=== PATIENT | female | born 1985 | race Caucasian/White ===

== ENCOUNTER 2021-07-19 12:47 | Inpatient (IN) | payer MEDICAID ==
[~2021-07-19] VITALS: Ht 162.6 cm; Wt 76.7 kg
[2021-07-19] MEDS ORDERED: ZOLPIDEM TARTRATE 10 MG TABLET PO PRN (17:00)
[2021-07-19] MEDS ORDERED: PNEUMOCOCCAL VACCINE POLYVALENT 0.5 ML VIAL [PPSV23] IM. ONE (18:00)
[2021-07-19] MEDS ORDERED: DiphenhydrAMINE HCL 25 MG CAPSULE PO ONE (19:00)
[2021-07-19 19:27] VITALS: BP 101/72
[2021-07-20 00:37] VITALS: BP 116/70
[2021-07-20] MEDS ORDERED: PETROLATUM,WHITE 28 GM JELLY TP PRN (06:15)
[2021-07-20] MEDS ORDERED: NICOTINE 14 MG/24 HOUR PATCH TD PRN (06:15)
[2021-07-20] MEDS ORDERED: ONDANSETRON HCL 4 MG TABLET PO PRN (06:15)
[2021-07-20] MEDS ORDERED: DOCUSATE SODIUM 100 MG CAPSULE PO PRN (06:15)
[2021-07-20] MEDS ORDERED: MAGNESIUM HYDROXIDE SUSPENSION 30 ML UDCUP PO PRN (06:15)
[2021-07-20] MEDS ORDERED: MAG HYDROX/AL HYDROX/SIMETH ES 30 ML SUSPENSION UDCUP PO PRN (06:15)
[2021-07-20] MEDS ORDERED: IBUPROFEN 400 MG TABLET PO PRN (06:15)
[2021-07-20] MEDS ORDERED: GuaiFENesin/D-METHORPHAN [SUGAR-FREE] 200-20MG/10 ML SYRUP UDCUP PO PRN (06:15)
[2021-07-20] MEDS ORDERED: LOPERAMIDE HCL 2 MG CAPSULE PO PRN (06:15)
[2021-07-20] MEDS ORDERED: ALBUTEROL SULFATE HFA 90 MCG/PUFF 8 GM INHALER IH PRN (06:15)
[2021-07-20] MEDS ORDERED: ACETAMINOPHEN 325 MG TABLET PO PRN (06:15)
[2021-07-20] MEDS ORDERED: CloNIDine HCL 0.1 MG TABLET PO PRN (06:15)
[2021-07-20 07:30] LABS: ALANINE AMINOTRANSFERASE 16 U/L (12-78); ALBUMIN 3.2 g/dL (3.4-5.0); ALKALINE PHOSPHATASE 64 U/L (46-116); ANION GAP 7 mmol/L (8-16); ASPARTATE AMINOTRANSFERASE 11 U/L (15-37); BILIRUBIN,TOTAL 0.6 mg/dL (0.1-1.0); CALCIUM, TOTAL 8.8 mg/dL (8.8-10.5); CARBON DIOXIDE 28 mmol/L (22-29); CHLORIDE 106 mmol/L (98-107); CHOL/HDL RATIO 2.7 (3.9-5.7); CHOLESTEROL 119 mg/dL (131-200); CREATININE 0.91 mg/dL (0.60-1.30); FREE T4 (FREE THYROXINE) 1.13 ng/dL (0.76-1.46); GLOMERULAR FILTR. RATE CALC > 60 mL/min (>60); GLUCOSE,RANDOM 82 mg/dL (70-110); HCG,QUANTITATIVE < 1 mIU/mL (0-6); HDL CHOLESTEROL 44 mg/dL (40-60); LDL CHOL (CALC.) 66 mg/dL (0-130); POTASSIUM 3.9 mmol/L (3.5-5.1); SODIUM SERUM 141 mmol/L (136-145); THYROID STIMULATING HORMONE 0.77 uIU/mL (0.36-3.74); TOTAL PROTEIN, SERUM 6.6 g/dL (6.4-8.2); TRIGLYCERIDES 45 mg/dL (15-150); UREA NITROGEN, BLOOD 19 mg/dL (7-18)
[2021-07-20 07:31] LABS: HEMOGLOBIN A1C 4.8 % (3.8-5.6)
[2021-07-20 08:15] VITALS: BP 118/76
[2021-07-20] MEDS: CEPHALEXIN MONOHYDRATE 500 MG CAPSULE PO SCH ×3 (08:41→16:16)
[2021-07-20] MEDS: LORazepam 2 MG TABLET PO PRN (08:42)
[2021-07-20] MEDS ORDERED: NYSTATIN 15 GM POWDER BOTTLE TP SCH (09:00)
[2021-07-20] MEDS: NYSTATIN 30 GM CREAM TP SCH (16:17)
[2021-07-21 07:02] VITALS: BP 103/56
[2021-07-21] MEDS: CEPHALEXIN MONOHYDRATE 500 MG CAPSULE PO SCH ×3 (08:11→17:12)
[2021-07-21] MEDS: NYSTATIN 30 GM CREAM TP SCH ×2 (08:11→17:12)
[2021-07-21 08:15] VITALS: BP 119/68
[2021-07-21 16:45] VITALS: BP 102/66
[2021-07-21] MEDS: HALOPERIDOL 5 MG TABLET PO PRN (17:12)
[2021-07-21] MEDS: LORazepam 2 MG TABLET PO PRN (17:12)
[2021-07-22 07:01] VITALS: BP 110/71
[2021-07-22 08:07] VITALS: BP 115/66
[2021-07-22] MEDS: CEPHALEXIN MONOHYDRATE 500 MG CAPSULE PO SCH ×3 (08:19→16:01)
[2021-07-22] MEDS: NYSTATIN 30 GM CREAM TP SCH ×2 (08:19→16:01)
[2021-07-22] MEDS: LORazepam 2 MG TABLET PO PRN ×2 (08:22→19:37)
[2021-07-22] MEDS: LURASIDONE HCL 60 MG TABLET PO SCH (16:01)
[2021-07-22 16:09] VITALS: BP 109/69
[2021-07-22] MEDS: HALOPERIDOL 5 MG TABLET PO PRN (19:37)
[2021-07-22] MEDS: TraZODone HCL 50 MG TABLET PO SCH (20:06)
[2021-07-23] MEDS: LORazepam 2 MG TABLET PO PRN (08:06)
[2021-07-23] MEDS: CEPHALEXIN MONOHYDRATE 500 MG CAPSULE PO SCH ×3 (08:06→16:03)
[2021-07-23] MEDS: NYSTATIN 30 GM CREAM TP SCH ×2 (08:07→16:05)
[2021-07-23 08:14] VITALS: BP 100/60
[2021-07-23] MEDS: HALOPERIDOL 5 MG TABLET PO PRN (08:58)
[2021-07-23 16:03] VITALS: BP 108/6
[2021-07-23] MEDS: LURASIDONE HCL 60 MG TABLET PO SCH (16:03)
[2021-07-23] MEDS: TraZODone HCL 50 MG TABLET PO SCH (20:45)
[2021-07-24 05:50] VITALS: BP 111/69
[2021-07-24 08:04] VITALS: BP 115/62
[2021-07-24] MEDS: LORazepam 2 MG TABLET PO PRN ×2 (08:34→18:51)
[2021-07-24] MEDS: CEPHALEXIN MONOHYDRATE 500 MG CAPSULE PO SCH ×2 (08:34→12:07)
[2021-07-24] MEDS: HALOPERIDOL 5 MG TABLET PO PRN ×2 (08:34→18:48)
[2021-07-24] MEDS: NYSTATIN 30 GM CREAM TP SCH ×2 (08:50→16:06)
[2021-07-24 16:03] VITALS: BP 98/61
[2021-07-24] MEDS: LURASIDONE HCL 60 MG TABLET PO SCH (16:50)
[2021-07-24] MEDS: TraZODone HCL 50 MG TABLET PO SCH (20:36)
[2021-07-25 07:04] VITALS: BP 90/56
[2021-07-25 08:06] VITALS: BP 102/59
[2021-07-25] MEDS: NYSTATIN 30 GM CREAM TP SCH ×2 (08:19→16:29)
[2021-07-25] MEDS: SERTRALINE HCL 50 MG TABLET PO SCH (09:40)
[2021-07-25] MEDS: LURASIDONE HCL 60 MG TABLET PO SCH (16:29)
[2021-07-25 16:30] VITALS: BP 89/55
[2021-07-25] MEDS: TraZODone HCL 50 MG TABLET PO SCH (21:00)
[2021-07-26] MEDS: NYSTATIN 30 GM CREAM TP SCH (09:00)
[2021-07-26] MEDS: SERTRALINE HCL 50 MG TABLET PO SCH (09:00)
== END 2021-07-26 16:16 | disposition short-term general hospital (02) | DRG 750 ==
LOC: B3A 16:41
PROVIDERS: ADMIT Psychiatry & Neurology Child & Adolescent Psychiatry; ATTEND Psychiatry & Neurology Child & Adolescent Psychiatry
DX: F25.1 Schizoaffective disorder, depressive type (principal); I95.9 Hypotension, unspecified; E88.09 Other disorders of plasma-protein metabolism, not elsewhere classified; B36.9 Superficial mycosis, unspecified; F41.9 Anxiety disorder, unspecified; F19.10 Other psychoactive substance abuse, uncomplicated; R53.83 Other fatigue; Z20.822 Contact with and (suspected) exposure to COVID-19; Z88.5 Allergy status to narcotic agent; Z88.8 Allergy status to other drugs, medicaments and biological substances; Z28.21 Immunization not carried out because of patient refusal
CPT/HCPCS: 80053; 80061; 83036; 84439; 84443; 84702; Q9967

== ENCOUNTER 2021-07-25 20:18 | Inpatient (IN) | payer MEDICAID, OTHER ==
[~2021-07-25] VITALS: Ht 193 cm; Wt 77.7 kg
[2021-07-25] MEDS ORDERED: SODIUM CHLORIDE 0.9% 1,000 ML IV ONE (21:00)
[2021-07-25 21:08] LABS: BASOPHILS % (AUTO) 0.5 % (0.0-2.0); EOSINOPHILS % (AUTO) 1.6 % (1.0-6.0); HEMATOCRIT 33.9 % (36-46); HEMOGLOBIN 11.8 g/dL (12.0-16.0); LYMPHOCYTES % (AUTO) 30.8 % (22.0-44.0); MEAN CORPUSCULAR HEMOGLOBIN 31.7 pg (26.0-34.0); MEAN CORPUSCULAR HGB CONC 34.7 G/dL (31.0-37.0); MEAN CORPUSCULAR VOLUME 91 fL (80-100); MONOCYTES # (AUTO) 0.3 K/uL (0.1-1.0); MONOCYTES % (AUTO) 8.5 % (2.0-9.0); NEUTROPHILS # (AUTO) 1.9 K/uL (1.8-7.7); NEUTROPHILS % (AUTO) 58.6 % (40.0-70.0); PLATELET COUNT (AUTO) 97 K/uL (150-450); RED BLOOD CELL COUNT(AUTO) 3.71 MIL/uL (4.00-5.20); RED CELL DISTRIBUTION WIDTH 11.9 % (11.5-14.5)
[2021-07-25 21:25] LABS: ANION GAP 6 mmol/L (8-16); CALCIUM, TOTAL 8.3 mg/dL (8.8-10.5); CARBON DIOXIDE 28 mmol/L (22-29); CHLORIDE 105 mmol/L (98-107); CREATININE 1.02 mg/dL (0.60-1.30); GLOMERULAR FILTR. RATE CALC > 60 mL/min (>60); GLUCOSE,RANDOM 90 mg/dL (70-110); POTASSIUM 4.1 mmol/L (3.5-5.1); SODIUM SERUM 139 mmol/L (136-145); UREA NITROGEN, BLOOD 21 mg/dL (7-18)
[2021-07-25 21:32] LABS: ALANINE AMINOTRANSFERASE 15 U/L (12-78); ALBUMIN 3.1 g/dL (3.4-5.0); ALKALINE PHOSPHATASE 68 U/L (46-116); ASPARTATE AMINOTRANSFERASE 17 U/L (15-37); BILIRUBIN,TOTAL 0.4 mg/dL (0.1-1.0); TOTAL PROTEIN, SERUM 6.3 g/dL (6.4-8.2)
[2021-07-25 21:44] LABS: COVID AG,FIA SOURCE NASAL SWAB
[2021-07-25 21:48] LABS: APPEARANCE,URINE CLEAR (CLEAR); BILIRUBIN,URINE NEGATIVE (NEGATIVE); GLUCOSE, URINE (UA) NEGATIVE (NEGATIVE); KETONES,URINE NEGATIVE (NEGATIVE); LEUKOCYTE ESTERASE ,URINE TRACE (NEGATIVE); NITRATE,URINE NEGATIVE (NEGATIVE); OCCULT BLOOD,URINE NEGATIVE (NEGATIVE); PROTEIN,URINE NEGATIVE (NEGATIVE); SPECIFIC GRAVITIY, URINE 1.025 (1.003-1.030); UROBILINOGEN,URINE <=1.0 mg/dL (<=1.0)
[2021-07-25 22:13] LABS: BACTERIA,URINE None Seen /HPF (None Seen); MUCUS,URINE Few LPF (None Seen); RBC,URINE 0-2 /HPF (0-2); SQUAMOUS EPITHELIAL CELL,UR Few /LPF (None Seen)
[2021-07-25] MEDS ORDERED: ONDANSETRON HCL 4 MG/2 ML VIAL IVP PRN (22:30)
[2021-07-25] MEDS ORDERED: ZOLPIDEM TARTRATE 5 MG TABLET PO PRN (22:30)
[2021-07-25] MEDS ORDERED: MAGNESIUM HYDROXIDE SUSPENSION 30 ML UDCUP PO PRN (22:30)
[2021-07-25 23:08] LABS: THYROID STIMULATING HORMONE 2.28 uIU/mL (0.36-3.74)
[2021-07-26] VITALS (9 sets, daily range): BP systolic 81–109; BP diastolic 42–63
[2021-07-26] MEDS ORDERED: SODIUM CHLORIDE 0.9% 1,000 ML IV ONE
[2021-07-26] MEDS: HEPARIN SODIUM,PORCINE 5,000 UNITS/ML VIAL SQ SCH ×3 (01:30→15:15)
[2021-07-26] MEDS: FAMOTIDINE 20 MG TABLET PO SCH (09:00)
[2021-07-26] MEDS ORDERED: HALOPERIDOL 5 MG TABLET PO PRN (13:15)
[2021-07-26] MEDS: SERTRALINE HCL 50 MG TABLET PO SCH (15:15)
[2021-07-26] MEDS: LURASIDONE HCL 60 MG TABLET PO SCH (16:19)
[2021-07-26] MEDS ORDERED: SODIUM CHLORIDE 0.9% 250 ML IV ONE ×2 (16:30→16:33)
[2021-07-26] MEDS: LORazepam 1 MG TABLET PO PRN (18:02)
[2021-07-26 19:22] LABS: INR 1.1 (0.9-1.1); PROTHROMBIN TIME 11.5 SEC (9.4-11.6)
[2021-07-26] MEDS ORDERED: WARFARIN SODIUM 5 MG TABLET PO ONE (20:45)
[2021-07-26] MEDS: TraZODone HCL 50 MG TABLET PO SCH (21:00)
[2021-07-27 04:00] VITALS: BP 103/63
[2021-07-27 05:50] VITALS: BP 84/46
[2021-07-27 06:24] LABS: BASOPHILS % (AUTO) 1.7 % (0.0-2.0); EOSINOPHILS % (AUTO) 1.6 % (1.0-6.0); HEMATOCRIT 33.9 % (36-46); HEMOGLOBIN 11.9 g/dL (12.0-16.0); LYMPHOCYTES % (AUTO) 34.2 % (22.0-44.0); MEAN CORPUSCULAR HEMOGLOBIN 31.9 pg (26.0-34.0); MEAN CORPUSCULAR VOLUME 91 fL (80-100); MONOCYTES # (AUTO) 0.2 K/uL (0.1-1.0); MONOCYTES % (AUTO) 7.4 % (2.0-9.0); NEUTROPHILS # (AUTO) 1.5 K/uL (1.8-7.7); NEUTROPHILS % (AUTO) 55.1 % (40.0-70.0); PLATELET COUNT (AUTO) 90 K/uL (150-450); RED BLOOD CELL COUNT(AUTO) 3.73 MIL/uL (4.00-5.20); RED CELL DISTRIBUTION WIDTH 12.3 % (11.5-14.5)
[2021-07-27 06:35] LABS: INR 1.1 (0.9-1.1)
[2021-07-27 08:01] VITALS: BP 106/58
[2021-07-27 08:02] LABS: AMPHET/METH SCREEN,URINE NEGATIVE (NEGATIVE); BARBITURATE SCREEN, URINE NEGATIVE (NEGATIVE); BENZODIAZEPINES SCREEN,URINE NEGATIVE (NEGATIVE); CANNABINOID SCREEN,URINE NEGATIVE (NEGATIVE); COCAINE SCREEN,URINE NEGATIVE (NEGATIVE); METHADONE SCREEN, URINE NEGATIVE (NEGATIVE); OPIATE SCREEN,URINE NEGATIVE (NEGATIVE)
[2021-07-27 08:04] LABS: PHENCYCLIDINE SCREEN,URINE NEGATIVE (NEGATIVE)
[2021-07-27] MEDS: SERTRALINE HCL 50 MG TABLET PO SCH (09:00)
[2021-07-27] MEDS: FAMOTIDINE 20 MG TABLET PO SCH (09:38)
[2021-07-27] MEDS ORDERED: *CLINICAL-WARFARIN SODIUM DOSING CLINICAL ONE (10:30)
[2021-07-27 12:03] VITALS: BP 91/43
[2021-07-27 16:14] VITALS: BP 96/57
[2021-07-27] MEDS: WARFARIN SODIUM 2 MG TABLET PO SCH (18:35)
[2021-07-27] MEDS: LURASIDONE HCL 60 MG TABLET PO SCH (18:35)
[2021-07-27] MEDS: LORazepam 1 MG TABLET PO PRN (18:42)
[2021-07-27 20:14] VITALS: BP 95/53
[2021-07-27] MEDS: TraZODone HCL 50 MG TABLET PO SCH (20:17)
[2021-07-28 05:47] VITALS: BP 96/55
[2021-07-28 07:12] LABS: INR 1.2 (0.9-1.1); PROTHROMBIN TIME 12.7 SEC (9.4-11.6)
[2021-07-28 07:15] LABS: BASOPHILS % (AUTO) 0.8 % (0.0-2.0); EOSINOPHILS % (AUTO) 1.8 % (1.0-6.0); HEMATOCRIT 34.4 % (36-46); HEMOGLOBIN 12.2 g/dL (12.0-16.0); LYMPHOCYTES # (AUTO) 1.1 K/uL (1.0-4.8); LYMPHOCYTES % (AUTO) 37.5 % (22.0-44.0); MEAN CORPUSCULAR HEMOGLOBIN 32.2 pg (26.0-34.0); MEAN CORPUSCULAR HGB CONC 35.5 G/dL (31.0-37.0); MEAN CORPUSCULAR VOLUME 91 fL (80-100); MONOCYTES # (AUTO) 0.3 K/uL (0.1-1.0); MONOCYTES % (AUTO) 8.5 % (2.0-9.0); NEUTROPHILS # (AUTO) 1.6 K/uL (1.8-7.7); NEUTROPHILS % (AUTO) 51.4 % (40.0-70.0); PLATELET COUNT (AUTO) 84 K/uL (150-450); RED BLOOD CELL COUNT(AUTO) 3.79 MIL/uL (4.00-5.20); RED CELL DISTRIBUTION WIDTH 12.3 % (11.5-14.5)
[2021-07-28 07:45] LABS: ALANINE AMINOTRANSFERASE 17 U/L (12-78); ALKALINE PHOSPHATASE 54 U/L (46-116); ANION GAP 4 mmol/L (8-16); ASPARTATE AMINOTRANSFERASE 16 U/L (15-37); BILIRUBIN,TOTAL 0.4 mg/dL (0.1-1.0); CALCIUM, TOTAL 8.5 mg/dL (8.8-10.5); CARBON DIOXIDE 28 mmol/L (22-29); CHLORIDE 106 mmol/L (98-107); GLOMERULAR FILTR. RATE CALC > 60 mL/min (>60); GLUCOSE,RANDOM 73 mg/dL (70-110); POTASSIUM 3.8 mmol/L (3.5-5.1); SODIUM SERUM 138 mmol/L (136-145); TOTAL PROTEIN, SERUM 6.1 g/dL (6.4-8.2); UREA NITROGEN, BLOOD 13 mg/dL (7-18)
[2021-07-28 08:10] VITALS: BP 95/54
[2021-07-28] MEDS: SERTRALINE HCL 50 MG TABLET PO SCH (09:00)
[2021-07-28] MEDS: FAMOTIDINE 20 MG TABLET PO SCH (09:00)
[2021-07-28] MEDS: LORazepam 1 MG TABLET PO PRN (11:13)
[2021-07-28 12:17] VITALS: BP 98/55
[2021-07-28] MEDS: WARFARIN SODIUM 2 MG TABLET PO SCH (17:04)
[2021-07-28] MEDS: LURASIDONE HCL 60 MG TABLET PO SCH (17:04)
[2021-07-28 20:12] VITALS: BP 90/33
[2021-07-28] MEDS: TraZODone HCL 50 MG TABLET PO SCH (20:30)
[2021-07-29] VITALS (9 sets, daily range): BP systolic 67–121; BP diastolic 33–59
[2021-07-29] MEDS ORDERED: SODIUM CHLORIDE 0.9% 500 ML IV ONE ×2 (00:30→11:30)
[2021-07-29 01:19] LABS: CALCIUM, TOTAL 7.9 mg/dL (8.8-10.5); CREATININE 1.09 mg/dL (0.60-1.30); MAGNESIUM 1.6 mg/dL (1.80-2.40); POTASSIUM 3.9 mmol/L (3.5-5.1)
[2021-07-29] MEDS ORDERED: SODIUM CHLORIDE 0.9% 2,450 ML IV ONE (01:30)
[2021-07-29] MEDS ORDERED: MAGNESIUM SULFATE 1 GM in DEXTROSE 5%-WATER 50 ML IV ONE (02:00)
[2021-07-29 08:17] LABS: BASOPHILS % (AUTO) 0.7 % (0.0-2.0); EOSINOPHILS % (AUTO) 1.9 % (1.0-6.0); HEMATOCRIT 34.1 % (36-46); HEMOGLOBIN 11.9 g/dL (12.0-16.0); LYMPHOCYTES % (AUTO) 33.1 % (22.0-44.0); MEAN CORPUSCULAR HGB CONC 34.8 G/dL (31.0-37.0); MEAN CORPUSCULAR VOLUME 92 fL (80-100); MONOCYTES # (AUTO) 0.2 K/uL (0.1-1.0); MONOCYTES % (AUTO) 7.2 % (2.0-9.0); NEUTROPHILS # (AUTO) 1.7 K/uL (1.8-7.7); NEUTROPHILS % (AUTO) 57.1 % (40.0-70.0); PLATELET COUNT (AUTO) 77 K/uL (150-450); RED BLOOD CELL COUNT(AUTO) 3.71 MIL/uL (4.00-5.20); RED CELL DISTRIBUTION WIDTH 12.3 % (11.5-14.5)
[2021-07-29 08:34] LABS: ALANINE AMINOTRANSFERASE 14 U/L (12-78); ALBUMIN 2.7 g/dL (3.4-5.0); ALKALINE PHOSPHATASE 50 U/L (46-116); ANION GAP 9 mmol/L (8-16); ASPARTATE AMINOTRANSFERASE 13 U/L (15-37); BILIRUBIN,TOTAL 0.2 mg/dL (0.1-1.0); CALCIUM, TOTAL 7.7 mg/dL (8.8-10.5); CARBON DIOXIDE 26 mmol/L (22-29); CHLORIDE 109 mmol/L (98-107); CREATININE 0.96 mg/dL (0.60-1.30); GLOMERULAR FILTR. RATE CALC > 60 mL/min (>60); GLUCOSE,RANDOM 77 mg/dL (70-110); POTASSIUM 4.2 mmol/L (3.5-5.1); SODIUM SERUM 144 mmol/L (136-145); TOTAL PROTEIN, SERUM 5.4 g/dL (6.4-8.2); UREA NITROGEN, BLOOD 16 mg/dL (7-18)
[2021-07-29 08:46] LABS: INR 1.5 (0.9-1.1)
[2021-07-29] MEDS: FAMOTIDINE 20 MG TABLET PO SCH (10:51)
[2021-07-29] MEDS: WARFARIN SODIUM 2 MG TABLET PO SCH (18:58)
[2021-07-29] MEDS: LURASIDONE HCL 60 MG TABLET PO SCH (18:59)
[2021-07-29] MEDS: ACETAMINOPHEN 325 MG TABLET PO PRN (20:18)
[2021-07-29] MEDS: MELATONIN 3 MG TABLET PO PRN (21:00)
[2021-07-30] VITALS (7 sets, daily range): BP systolic 86–96; BP diastolic 44–57
[2021-07-30] MEDS: ACETAMINOPHEN 325 MG TABLET PO PRN ×4 (00:54→19:59)
[2021-07-30] MEDS: FAMOTIDINE 20 MG TABLET PO SCH (08:33)
[2021-07-30 09:05] LABS: BASOPHILS % (AUTO) 0.7 % (0.0-2.0); EOSINOPHILS % (AUTO) 1.3 % (1.0-6.0); HEMATOCRIT 34.4 % (36-46); HEMOGLOBIN 11.9 g/dL (12.0-16.0); LYMPHOCYTES # (AUTO) 0.9 K/uL (1.0-4.8); LYMPHOCYTES % (AUTO) 27.5 % (22.0-44.0); MEAN CORPUSCULAR HEMOGLOBIN 31.7 pg (26.0-34.0); MEAN CORPUSCULAR HGB CONC 34.6 G/dL (31.0-37.0); MEAN CORPUSCULAR VOLUME 92 fL (80-100); MONOCYTES # (AUTO) 0.2 K/uL (0.1-1.0); NEUTROPHILS % (AUTO) 63.5 % (40.0-70.0); PLATELET COUNT (AUTO) 82 K/uL (150-450); RED BLOOD CELL COUNT(AUTO) 3.75 MIL/uL (4.00-5.20); RED CELL DISTRIBUTION WIDTH 12.3 % (11.5-14.5)
[2021-07-30 09:08] LABS: INR 1.4 (0.9-1.1); PROTHROMBIN TIME 15.1 SEC (9.4-11.6)
[2021-07-30 09:11] LABS: ALANINE AMINOTRANSFERASE 16 U/L (12-78); ALKALINE PHOSPHATASE 53 U/L (46-116); ANION GAP 2 mmol/L (8-16); ASPARTATE AMINOTRANSFERASE 15 U/L (15-37); BILIRUBIN,TOTAL 0.4 mg/dL (0.1-1.0); CALCIUM, TOTAL 8.4 mg/dL (8.8-10.5); CARBON DIOXIDE 30 mmol/L (22-29); CHLORIDE 107 mmol/L (98-107); CREATININE 0.98 mg/dL (0.60-1.30); GLOMERULAR FILTR. RATE CALC > 60 mL/min (>60); GLUCOSE,RANDOM 79 mg/dL (70-110); POTASSIUM 4.1 mmol/L (3.5-5.1); SODIUM SERUM 139 mmol/L (136-145); TOTAL PROTEIN, SERUM 5.9 g/dL (6.4-8.2); UREA NITROGEN, BLOOD 11 mg/dL (7-18)
[2021-07-30] MEDS ORDERED: PHENYLEPHRINE/SHK LV/MIN OIL/PET 57 GM OINTMENT TP PRN (14:30)
[2021-07-30] MEDS: LURASIDONE HCL 60 MG TABLET PO SCH (17:39)
[2021-07-30] MEDS: WARFARIN SODIUM 2 MG TABLET PO SCH (17:39)
[2021-07-30] MEDS: MELATONIN 3 MG TABLET PO PRN (19:59)
[2021-07-31 04:22] VITALS: BP 99/63
[2021-07-31 09:29] VITALS: BP 102/49
[2021-07-31 09:32] LABS: BASOPHILS % (AUTO) 0.5 % (0.0-2.0); HEMATOCRIT 33.8 % (36-46); HEMOGLOBIN 11.7 g/dL (12.0-16.0); LYMPHOCYTES # (AUTO) 0.9 K/uL (1.0-4.8); LYMPHOCYTES % (AUTO) 21.5 % (22.0-44.0); MEAN CORPUSCULAR HGB CONC 34.8 G/dL (31.0-37.0); MEAN CORPUSCULAR VOLUME 92 fL (80-100); MONOCYTES # (AUTO) 0.3 K/uL (0.1-1.0); MONOCYTES % (AUTO) 6.4 % (2.0-9.0); NEUTROPHILS # (AUTO) 3.1 K/uL (1.8-7.7); NEUTROPHILS % (AUTO) 70.6 % (40.0-70.0); PLATELET COUNT (AUTO) 84 K/uL (150-450); RED BLOOD CELL COUNT(AUTO) 3.67 MIL/uL (4.00-5.20); RED CELL DISTRIBUTION WIDTH 12.5 % (11.5-14.5)
[2021-07-31 09:43] LABS: ALANINE AMINOTRANSFERASE 13 U/L (12-78); ALBUMIN 2.9 g/dL (3.4-5.0); ALKALINE PHOSPHATASE 48 U/L (46-116); ANION GAP 2 mmol/L (8-16); ASPARTATE AMINOTRANSFERASE 12 U/L (15-37); BILIRUBIN,TOTAL 0.3 mg/dL (0.1-1.0); CALCIUM, TOTAL 8.2 mg/dL (8.8-10.5); CARBON DIOXIDE 28 mmol/L (22-29); CHLORIDE 106 mmol/L (98-107); CREATININE 0.95 mg/dL (0.60-1.30); GLOMERULAR FILTR. RATE CALC > 60 mL/min (>60); GLUCOSE,RANDOM 84 mg/dL (70-110); SODIUM SERUM 136 mmol/L (136-145); TOTAL PROTEIN, SERUM 5.7 g/dL (6.4-8.2); UREA NITROGEN, BLOOD 12 mg/dL (7-18)
[2021-07-31] MEDS ORDERED: MAGNESIUM OXIDE 400 MG TABLET PO ONE (10:30)
[2021-07-31 11:01] LABS: INR 1.6 (0.9-1.1); PROTHROMBIN TIME 16.7 SEC (9.4-11.6)
[2021-07-31 11:31] VITALS: BP 108/55
[2021-07-31 15:29] VITALS: BP 102/56
[2021-07-31] MEDS: LURASIDONE HCL 60 MG TABLET PO SCH (17:03)
[2021-07-31] MEDS: WARFARIN SODIUM 2 MG TABLET PO SCH (17:03)
[2021-07-31 20:07] VITALS: BP 75/45
[2021-07-31] MEDS: MELATONIN 3 MG TABLET PO PRN (20:34)
[2021-08-01] VITALS (8 sets, daily range): BP systolic 77–104; BP diastolic 40–67
[2021-08-01 06:27] LABS: BASOPHILS % (AUTO) 0.6 % (0.0-2.0); EOSINOPHILS % (AUTO) 0.9 % (1.0-6.0); HEMATOCRIT 34.1 % (36-46); HEMOGLOBIN 11.9 g/dL (12.0-16.0); LYMPHOCYTES # (AUTO) 1.1 K/uL (1.0-4.8); LYMPHOCYTES % (AUTO) 26.1 % (22.0-44.0); MEAN CORPUSCULAR HEMOGLOBIN 31.9 pg (26.0-34.0); MEAN CORPUSCULAR HGB CONC 34.8 G/dL (31.0-37.0); MEAN CORPUSCULAR VOLUME 92 fL (80-100); MONOCYTES # (AUTO) 0.3 K/uL (0.1-1.0); MONOCYTES % (AUTO) 7.4 % (2.0-9.0); NEUTROPHILS # (AUTO) 2.8 K/uL (1.8-7.7); PLATELET COUNT (AUTO) 75 K/uL (150-450); RED BLOOD CELL COUNT(AUTO) 3.71 MIL/uL (4.00-5.20); RED CELL DISTRIBUTION WIDTH 12.5 % (11.5-14.5)
[2021-08-01 06:42] LABS: ALANINE AMINOTRANSFERASE 7 U/L (12-78); ALBUMIN 2.9 g/dL (3.4-5.0); ALKALINE PHOSPHATASE 51 U/L (46-116); ANION GAP 4 mmol/L (8-16); ASPARTATE AMINOTRANSFERASE 11 U/L (15-37); BILIRUBIN,TOTAL 0.3 mg/dL (0.1-1.0); CALCIUM, TOTAL 8.4 mg/dL (8.8-10.5); CARBON DIOXIDE 30 mmol/L (22-29); CHLORIDE 103 mmol/L (98-107); CREATININE 0.98 mg/dL (0.60-1.30); GLOMERULAR FILTR. RATE CALC > 60 mL/min (>60); GLUCOSE,RANDOM 78 mg/dL (70-110); POTASSIUM 3.8 mmol/L (3.5-5.1); SODIUM SERUM 137 mmol/L (136-145); TOTAL PROTEIN, SERUM 5.8 g/dL (6.4-8.2); UREA NITROGEN, BLOOD 15 mg/dL (7-18)
[2021-08-01 09:35] LABS: INR 1.6 (0.9-1.1); PROTHROMBIN TIME 16.8 SEC (9.4-11.6)
[2021-08-01] MEDS ORDERED: MAGNESIUM SULFATE 4 GM/WATER 100 ML IV PRN (11:45)
[2021-08-01] MEDS ORDERED: MAGNESIUM SULFATE 2 GM/WATER 50 ML IV PRN (11:45)
[2021-08-01] MEDS: MAGNESIUM OXIDE 400 MG TABLET PO PRN ×3 (13:27→21:41)
[2021-08-01] MEDS: LURASIDONE HCL 60 MG TABLET PO SCH (18:20)
[2021-08-01] MEDS: WARFARIN SODIUM 7.5 MG TABLET PO SCH (18:20)
[2021-08-01] MEDS: MIDODRINE HCL 5 MG TABLET PO SCH (21:41)
[2021-08-02] VITALS (7 sets, daily range): BP systolic 78–145; BP diastolic 36–91
[2021-08-02 06:43] LABS: BASOPHILS % (AUTO) 0.6 % (0.0-2.0); EOSINOPHILS % (AUTO) 1.2 % (1.0-6.0); HEMATOCRIT 36.1 % (36-46); HEMOGLOBIN 12.7 g/dL (12.0-16.0); LYMPHOCYTES % (AUTO) 23.2 % (22.0-44.0); MEAN CORPUSCULAR HEMOGLOBIN 32.1 pg (26.0-34.0); MEAN CORPUSCULAR HGB CONC 35.1 G/dL (31.0-37.0); MEAN CORPUSCULAR VOLUME 91 fL (80-100); MONOCYTES # (AUTO) 0.3 K/uL (0.1-1.0); MONOCYTES % (AUTO) 6.1 % (2.0-9.0); NEUTROPHILS # (AUTO) 3.1 K/uL (1.8-7.7); NEUTROPHILS % (AUTO) 68.9 % (40.0-70.0); PLATELET COUNT (AUTO) 88 K/uL (150-450); RED BLOOD CELL COUNT(AUTO) 3.96 MIL/uL (4.00-5.20); RED CELL DISTRIBUTION WIDTH 12.4 % (11.5-14.5)
[2021-08-02 07:01] LABS: INR 1.8 (0.9-1.1); PROTHROMBIN TIME 18.2 SEC (9.4-11.6)
[2021-08-02] MEDS: MIDODRINE HCL 5 MG TABLET PO SCH ×3 (08:33→21:28)
[2021-08-02] MEDS: MAGNESIUM OXIDE 400 MG TABLET PO PRN ×3 (13:49→23:19)
[2021-08-02] MEDS: WARFARIN SODIUM 7.5 MG TABLET PO SCH (17:42)
[2021-08-02] MEDS: LURASIDONE HCL 60 MG TABLET PO SCH (17:42)
[2021-08-02] MEDS: ZOLPIDEM TARTRATE 10 MG TABLET PO PRN (21:28)
[2021-08-03 04:40] VITALS: BP 94/44
[2021-08-03 07:22] VITALS: BP 88/49
[2021-08-03 07:45] LABS: INR 2.1 (0.9-1.1); PROTHROMBIN TIME 21.9 SEC (9.4-11.6)
[2021-08-03] MEDS: MIDODRINE HCL 5 MG TABLET PO SCH ×3 (08:43→20:05)
[2021-08-03 10:55] VITALS: BP 104/62
[2021-08-03 15:35] VITALS: BP 87/62
[2021-08-03] MEDS: LURASIDONE HCL 60 MG TABLET PO SCH (16:49)
[2021-08-03] MEDS ORDERED: WARFARIN SODIUM 3 MG TABLET PO SCH (17:00)
[2021-08-03 19:48] VITALS: BP 129/65
[2021-08-03] MEDS: ZOLPIDEM TARTRATE 10 MG TABLET PO PRN (20:05)
[2021-08-03] MEDS: NICOTINE 14 MG/24 HOUR PATCH TD SCH (20:06)
[2021-08-04 00:05] VITALS: BP 99/52
[2021-08-04 05:53] VITALS: BP 100/48
[2021-08-04 07:33] VITALS: BP 91/49
[2021-08-04 07:46] LABS: INR 2.2 (0.9-1.1); PROTHROMBIN TIME 22.9 SEC (9.4-11.6)
[2021-08-04] MEDS: MIDODRINE HCL 5 MG TABLET PO SCH (08:40)
[2021-08-04] MEDS: NICOTINE 14 MG/24 HOUR PATCH TD SCH (08:40)
[2021-08-04] MEDS: LORazepam 1 MG TABLET PO PRN (10:34)
[2021-08-04] MEDS ORDERED: MIDO5TAB29 PO (11:04)
[2021-08-04] MEDS ORDERED: LURA60TA PO (11:04)
[2021-08-04] MEDS ORDERED: WARF3TAB8 PO (11:04)
[2021-08-04 11:33] VITALS: BP 103/44
== END 2021-08-04 12:15 | disposition home or self-care (01) | DRG 207 ==
LOC: EMS 21:37 → 5S 22:00
PROVIDERS: ADMIT Internal Medicine; ATTEND Internal Medicine
DX: I95.9 Hypotension, unspecified (principal); D61.818 Other pancytopenia; R45.851 Suicidal ideations; F25.9 Schizoaffective disorder, unspecified; F15.10 Other stimulant abuse, uncomplicated; Z20.822 Contact with and (suspected) exposure to COVID-19; F32.A Depression, unspecified; F99 Mental disorder, not otherwise specified; I45.10 Unspecified right bundle-branch block; Z79.899 Other long term (current) drug therapy; Z79.01 Long term (current) use of anticoagulants; Z95.2 Presence of prosthetic heart valve; Z91.041 Radiographic dye allergy status; Z88.6 Allergy status to analgesic agent
CPT/HCPCS: 71045; 80048; 80053; 80307; 81001; 82040; 82533; 83735; 83880; 84145; 84443; 84484; 84703; 85025; 85379; 85610; 93005; 93306; 99285; J1644; J3475; J7030; J7040; J7050; J7060; Q9967; 36415-L1; 36415-TC